=== PATIENT | female | born 1965 | race Caucasian/White ===

== ENCOUNTER 2016-07-28 19:38 | Emergency (ER) | payer MEDICAID ==
[~2016-07-28 19:38] MED LIST: COZAAR DPS50 MG PO; GLUCOPHAGE1000 MG PO; HCTZ12.5 MG PO; HUMALOG100 UNIT/1 SQ; LANTUS100 UNITS/ SQ; MEVACOR20 MG PO; OMNICEF DPS300 MG PO; TYLENOL DPS325 MG PO
--- NOTE | 2016-07-29 19:14 | ER ---
ADMIT: 07/28/2016 RM/LOC: ER [facility] MR#: [id number] [address] ANUPAM CORTES [address] [place] [address] Emergency Room Report SEX: F AGE: 50 : 1965 DATE: 07/28/2016 HISTORY OF PRESENT ILLNESS: The patient is a 50-year-old, complaining of weakness for 8 days. Her vitals; blood pressure 163/87 with a pulse of 123, respirations 22, temp is 98.3, and O2 sats 98%. She has high cholesterol, diabetes, hypertension, anemia, and 2 C-sections, and on physical examination, she does have a wound VAC on her left leg. Denies any fever, nausea, or vomiting. Her physical examination is otherwise negative. She is slightly tachycardic. Glucose 204, creatinine is 0.9, albumin 3.4, TSH 5.060, troponin 0.015. ProBNP is 181. Chest x-ray negative for pathology. WBC 8.7 with a hemoglobin of 10.3. She does have a urine that is positive for protein 2+, leukocyte esterase 3+, culture and sensitivity pending, wbc's 37 and rbc's 12. The patient was advised to follow up with the primary provider. She is going to contact them tomorrow. [facility]. I Bactrim due to the urinary tract infection. DIAGNOSIS: Urinary tract infection in woman with hyperglycemia and diabetes mellitus type 2. HUGH Smith / Xavi Vincent MD / philip JOB #: [id number] CC: Xavi Vincent MD, Attending Physician Neelima Chavarria, Family Physician
== END 2016-07-28 22:37 | disposition home or self-care (01) ==
LOC: ER 19:38
DX: N39.0 Urinary tract infection, site not specified (principal); E11.65 Type 2 diabetes mellitus with hyperglycemia; I10 Essential (primary) hypertension; E78.00 Pure hypercholesterolemia, unspecified

== ENCOUNTER → 2016-08-17 | Outpatient (CLI) | payer MEDICAID | END | disposition home or self-care (01) | LOC: RAD.S 08:00 | DX: Z12.31 Encounter for screening mammogram for malignant neoplasm of breast (principal) ==